=== PATIENT | female | born 1975 | race American Indian/Alaskan Native ===

== ENCOUNTER 2016-11-26 08:16 | Outpatient (CLI) | payer OTHER, MEDICARE ==
--- NOTE | 2016-11-26 10:56 | Mammography Report ---
NEEDLE LOCALIZATION AND HOOKWIRE PLACEMENT RIGHT BREAST:11/26/16 CLINICAL: Status post stereotactic biopsy with discordant pathology and two groups of increasing calcifications. COMPARISON: 11/13/16 FINDINGS: Using mammographic guidance, 1% lidocaine local anesthesia and sterile technique, two 3.0-cm [place] hookwires or placed from a CC from above approach to localize two groups of calcifications. Wire 1 is more medial and more posterior than wire 2. Two views demonstrated satisfactory targeting. The hookwires were deployed and two additional orthogonal images were obtained. The patient tolerated the procedure well and there were no apparent complications. IMPRESSION: Uncomplicated placement of two hookwires in the right breast.
--- NOTE | 2016-11-26 10:58 | Mammography Report ---
SPECIMEN RADIOGRAPH RIGHT BREAST: 11/26/16 08:16:00 CLINICAL: Surgical excision of a localizer clip in two groups of calcifications. FINDINGS: The targeted calcifications, a localizer clip and two wires are identified within the specimen. IMPRESSION: Excision of the targeted calcifications.
== END 2016-11-26 08:17 | disposition home or self-care (01) ==
LOC: SPVWC 08:16
PROVIDERS: ATTEND Surgery
DX: N64.1 Fat necrosis of breast (principal); N63 Unspecified lump in breast; Z80.3 Family history of malignant neoplasm of breast
CPT/HCPCS: 76098; 88307